=== PATIENT | male | born 1985 | race Caucasian/White ===

== ENCOUNTER 2018-10-15 09:02 | Emergency (ER) | payer OTHER ==
[~2018-10-15] VITALS: Ht 172.7 cm; Wt 75.0 kg
[~2018-10-15 09:02] MED LIST: FAMO-96 PO; ONDA4TAB35 PO; ZOF8 PO
[2018-10-15 09:09] VITALS: BP 141/93; PULSE 85; RESP 18; Ht 172.7 cm; Wt 75.0 kg
[2018-10-15] MEDS ORDERED: ONDANSETRON (ODT) 4 MG TAB ODT STA (10:08)
[2018-10-15] MEDS ORDERED: KETOROLAC 30 MG INJ IM STA (10:08)
[2018-10-15] MEDS ORDERED: IBUP-1542 PO (10:16)
[2018-10-15] MEDS ORDERED: D-ME473S2 PO (10:16)
[2018-10-15] MEDS ORDERED: ONDA8TAB14 PO (10:16)
--- NOTE | 2018-10-15 10:20 | ERD ---
ER Documentation Chief Complaint Chief Complaint fever x 3 days HPI 33-year-old male presents with fever and cough and body aches for last 3 days. He has nausea without vomiting. Denies diarrhea. Denies shortness of breath, chest pain, abdominal pain. ROS All systems reviewed and are negative except as per history of present illness. Medications Home Meds Active Scripts Dextromethorphan Hb-Promethazine Hcl* (Promethazine DM* Syrup) 473 Ml Syrup, 5 ML PO Q6 PRN for COUGH for 5 Days, ML Prov:SANJUANA TORRES MD 10/15/18 Ondansetron (Ondansetron Odt) 8 Mg Tab.rapdis, 8 MG PO Q6H PRN for NAUSEA AND/OR VOMITING, #6 TAB Prov:SANJUANA TORRES MD 10/15/18 Ibuprofen* (Motrin*) 600 Mg Tab, 600 MG PO Q6, #15 TAB Prov:SANJUANA TORRES MD 10/15/18 Famotidine* (Pepcid*) 20 Mg Tablet, 40 MG PO DAILY for 30 Days, TAB Prov:WILIAM CORDOVA MD 12/12/15 Ondansetron Hcl* (Zofran* ODT) 4 mg -ODT Tab.disper, 4 MG PO Q6 PRN for NAUSEA AND/OR VOMITING, #30 TAB Prov:WILIAM CORDOVA MD 12/12/15 Ondansetron Hcl* (Zofran* ODT) 8 mg -ODT Tab.disper, 8 MG PO Q6 PRN for NAUSEA AND/OR VOMITING, #10 TAB Prov:SONYA SR PA-C 09/06/15 Allergies Allergies: Coded Allergies: Silver (Verified Allergy, Unknown, 10/15/18) PMhx/Soc Medical and Surgical Hx: pt denies Medical Hx, pt denies Surgical Hx History of Surgery: No Anesthesia Reaction: No Hx Neurological Disorder: No Hx Respiratory Disorders: No Hx Cardiac Disorders: No Hx Psychiatric Problems: No Hx Miscellaneous Medical Probl: No Hx Alcohol Use: No Hx Substance Use: Yes (MARIJUANA) Hx Tobacco Use: No Smoking Status: Never smoker FmHx Family History: No diabetes, No coronary disease, No other Physical Exam Vitals Vital Signs Date Temp Pulse Resp B/P (MAP) Pulse Ox O2 O2 Flow FiO2 Time Delivery Rate 10/15/18 97.5 85 18 141/93 98 09:09 (109) Physical Exam Const: No acute distress Head: Atraumatic Eyes: Normal Conjunctiva ENT: Normal External Ears, Nose and Mouth. TMs and oropharynx normal. Neck: Full range of motion. No meningismus. Resp: Clear to auscultation bilaterally. Dry coarse cough without rales, wheezing or retractions. Cardio: Regular rate and rhythm, no murmurs Abd: Soft, non tender, non distended. Normal bowel sounds Skin: No petechiae or rashes Back: No midline or flank tenderness Ext: No cyanosis, or edema Neur: Awake and alert Psych: Normal Mood and Affect Results 24 hrs Current Medications Medications Dose Sig/Cristian Start Time Status Last (Trade) Ordered Route PRN Stop Time Admin Dose Reason Admin Ketorolac 30 mg ONCE STAT 10/15/18 DC Tromethamine IM 10:08 10/15/18 (Toradol) 10:09 Ondansetron 8 mg ONCE STAT 10/15/18 DC HCl (Zofran ODT 10:08 10/15/18 Odt) 10:09 650 mg ONCE ONCE 10/15/18 Acetaminophen PO 10:30 10/15/18 (Tylenol 10:31 Tab) Procedures/MDM She presents with fever, URI symptoms of body aches suggestive of likely influenza without evidence of hypoxemia, respiratory distress or signs of pneumonia or abdominal pain. He was treated with Toradol 30 mg IM, Zofran, Tylenol and we treated with fever control, Zofran, promethazine DM at home, further observation and return precautions. The patient was stable with no new complaints during the ER course. Clinically, there is no current evidence to suggest meningitis, sepsis, acute abdomen, pneumonia, stroke, acute coronary syndrome, pulmonary embolism, aortic dissection or any other emergent condition appearing to require further evaluation or hospitalization. Patient counseled regarding my diagnostic impression and care plan. Prior to discharge all questions answered. Pt agrees with treatment plan and understands strict return precautions. Pt is instructed to follow up with primary care provider within 24- 48 hours. Precautionary instructions provided including instructions to return to the ER if not improving or for any worsening or changing symptoms or concerns. Departure Diagnosis: Primary Impression: Flu-like symptoms Additional Impression: Fever Fever type: unspecified Qualified Codes: R50.9 - Fever, unspecified Condition: Stable Patient Instructions: Fever Control (Adult), Influenza (Adult) Additional Instructions: Likely influenza should resolve over the next few days. Recheck for new or worsening symptoms with primary care doctor. SANJUANA TORRES MD Oct 15, 2018 10:20
[2018-10-15] MEDS ORDERED: ACETAMINOPHEN 325 MG TAB PO ONE (10:30)
== END 2018-10-15 10:30 | disposition home or self-care (01) ==
LOC: FTE 09:02
DX: R05 Cough (principal); R11.2 Nausea with vomiting, unspecified
CPT/HCPCS: 96372; J1885; Z7502; Z7610